=== PATIENT | male | born 1950 | race Caucasian/White ===

== ENCOUNTER 2018-10-24 15:25 | Inpatient (IN) ==
--- OUTSIDE RECORDS SUMMARY | 2018-10-24 15:29 | External Medical Summary | Continuity of Care Document ---
:1950 Author Name Cristal Smith Address Unavailable Unavailable , Care Team Providers Name Role Phone Fabian Serrato PA-C Unavailable [email or web address] Smith Unavailable [email or web address] EVELYN LOZANO M.D., A Unavailable Unavailable Unavailable Unavailable Unavailable Assessments Assessed Problems:Diabetes mellitus Problems Inguinal hernia (550.90) (K40.90) Tinea corporis (110.5) (B35.4) Diabetes mellitus (250.00) (E11.9) Abnormal x-ray of cervical spine (793.7) (R93.7) Neck pain (723.1) (M54.2) Thyroid nodule (241.0) (E04.1) Shoulder pain (719.41) (M25.519) Tick bite (919.4) (W57.XXXA) Screening PSA (prostate specific antigen) (V76.44) (Z12.5) Acid reflux (530.81) (K21.9) Allergies and Adverse Reactions No Known Drug Allergies (Allergy) Medications Ketoconazole 2 % External Cream; APPLY A THIN LAYER TO AFFECTED AREA(S) TWICE DAILY. CLINTON Serrato Start: 15-Feb-2016 Quantity: 1 30 GM Tube Refills: 1 Aspirin 325 MG Oral Tablet; TAKE 1 TABLET DAILY. Start: 29-Dec-2015 Refills: 0 Zantac 150 MG TABS; TAKE 1 TABLET DAILY. Start: 29-Dec-2015 Refills: 0 Meloxicam 7.5 MG Oral Tablet; TAKE 1 TABLET TWICE DAILY. CLINTON Hernadez Start: 17-Jan-2016 Quantity: 60 Refills: 0 Procedures History of Inguinal Hernia Repair Status : Completed 11-May-2006 0:00 History of Tonsillectomy Status: Complet ed Immunizations Immunizations not documented Family History Mother Family history of malignant neoplasm (V16.9) (Z80.9) Status: Active Family history of diabetes mellitus (V18.0) (Z83.3) Status: Active Father Family history of malignant neoplasm (V16.9) (Z80.9) Status: Active Family history of diabetes mellitus (V18.0) (Z83.3) Status: Active Sibling Family history of diabetes mellitus (V18.0) (Z83.3) Status: Active Family history of kidney stones (V18.69) (Z84.1) Status: Act arslan Unknown Family Member Family history of myocardial infarction Status: Active Comments: Family History (V17.3) (Z82.49) Social History - Smoking Status Former smoker Interventions Labs/Procedures/ImagingDiabetic Eye Exam; Done: 15 May 2018 Plan of Treatment Planned Observations Planned Goals not documented Results No Known Results Results not documented
[2018-10-24] MEDS ORDERED: SODIUM CHLORIDE 0.9% 500 ML IV ONE (16:00)
[2018-10-24] MEDS ORDERED: LABETALOL HCL IV 5 MG/ML 20ML IV STA ×2 (16:00→16:54)
--- NOTE | 2018-10-24 16:09 | XRay Report ---
XR chest 1V portable CLINICAL HISTORY: 68 years-old Male presenting with hypertension. TECHNIQUE: Portable upright AP view of the chest was obtained. COMPARISON: . FINDINGS: Atherosclerosis of the aortic arch. Cardiac silhouette normal in size. Lungs and pleural spaces clear . Degenerative changes of the thoracic spine. Upper abdomen normal. IMPRESSION: 1. No acute cardiopulmonary disease. Electronically signed by: Heriberto Simmons M.D. 10/24/2018 4:08 PM
[2018-10-24 16:14] LABS: Basophils # (auto) 0.03 K/uL (0-0.2); Basophils % (auto) 0.5 %; Eosinophils # (auto) 0.09 K/uL (0-0.5); Eosinophils % (auto) 1.5 %; Hematocrit (blood only) 46.9 % (42-52); Hemoglobin 16.7 g/dL (14.0-18.0); Immature Granulocytes # (auto) 0.01 K/uL (0.00-0.02); Immature Granulocytes % (auto) 0.2 %; Lymphocytes # (auto) 1.33 K/uL (1.2-3.4); Lymphocytes % (auto) 21.8 %; Mean Corpuscular Hgb Conc 35.6 g/dL (32-36); Mean Corpuscular Volume 90.7 fL (80-100); Mean Platelet Volume 10.4 fL (7.4-10.4); Monocytes # (auto) 0.37 K/uL (0.11-0.59); Monocytes % (auto) 6.1 %; Neutrophils # (auto) 4.26 K/uL (1.4-6.5); Neutrophils % (auto) 69.9 %; Platelet Count 232 K/uL (130-400); RDW Coefficient of Variation 12.9 % (11.5-14.5); RDW Standard Deviation 42.5 fL (36.4-46.3); Red Blood Count 5.17 M/uL (4.7-6.1); White Blood Count 6.09 K/uL (4.8-10.8)
--- NOTE | 2018-10-24 16:53 | XRay Report ---
ORBIT RADIOGRAPHS 3 VIEWS HISTORY: pre-MRI screening. COMPARISON: None. FINDINGS: There are no radiopaque foreign bodies identified within the orbits. IMPRESSION: No radiopaque foreign bodies identified within the orbits. Electronically signed by: Davian Holder M.D. 10/24/2018 4:51 PM
[2018-10-24 17:11] LABS: Lyme Ab IgM w/WB Rflx Negative (Negative)
[2018-10-24 17:12] LABS: Lyme Ab IgG w/WB Rflx Negative (Negative)
[2018-10-24 17:16] LABS: Alanine Aminotransferase 26 U/L (12-78); Albumin Level 4.3 gm/dl (3.4-5.0); Aspartate Aminotransferase 13 U/L (15-37); BUN Creatinine Ratio 12.4 (10-20); Blood Urea Nitrogen 12 mg/dl (7-18); Calcium 10.3 mg/dl (8.5-10.1); Carbon Dioxide 28 mmol/L (21-32); Chloride 107 mmol/L (98-107); Est GFR (African American) 96.2; Glucose 133 mg/dl (70-99); Potassium 3.7 mmol/L (3.5-5.1); Sodium 143 mmol/L (136-145)
[2018-10-24 17:27] LABS: Albumin Globulin Ratio 1.3 (0.9-2); Alkaline Phosphatase 82 U/L (45-117); Bilirubin,Total 0.7 mg/dl (0.2-1); Globulin 3.3 gm/dl (2.5-4.0); Total Protein 7.6 gm/dl (6.4-8.2); Troponin I < 0.015 ng/ml (0-0.045)
--- NOTE | 2018-10-24 17:46 | Magnetic Resonance Report ---
MRA OF THE INTRACRANIAL CIRCULATION WITHOUT CONTRAST CLINICAL HISTORY: Diplopia. COMPARISON STUDY: None. TECHNIQUE: Utilizing a 1.5 Lexis magnet and 3-D [id number] technique, unenhanced MRA of the intra cranial circulation was obtained. FINDINGS: Please note that the MRI of the brain will be reported separately. The bilateral M1, M2, A1 and A2 segments are patent. 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 The right A1 segment is diminutive and likely hypoplastic. No intracranial aneurysm is identified. No ab rupt vessel cut off inside identified. There is moderate to severe stenosis of the P2 segment of the left posterior cerebral artery. IMPRESSION: 1. No intracranial aneurysm or abrupt vessel cut off. 2. Multifocal stenoses, likely due to atherosclerosis with moderate to severe stenosis of the right c avernous carotid and the P2 segment of the left posterior cerebral artery. Electronically signed by: Davian Holder M.D. 10/24/2018 5:44 PM
--- NOTE | 2018-10-24 17:53 | Magnetic Resonance Report ---
MR brain wo con CLINICAL HISTORY: 68 years-old Male presenting with diplopia that began at 70 and today, concern for stroke. TECHNIQUE: Multisequence, multiplanar MR imaging of the brain was performed without the use of intrav enous contrast. IV contrast: None. COMPARISON: None. FINDINGS: Localizer images: Unremarkable. Normal midline sagittal structures. Proportional ventricular and sulcal prominence, likely age-relate d parenchymal volume loss. No restricted diffusion or hemorrhage. Punctate focus of diffusion hyperin tensity within the left cerebral peduncle is felt to be artifactual given the absence of associated T 2/FLAIR hyperintensity in this region. Minimal periventricular and subcortical white matter T2/FLAIR hyperintensity, nonspecific but likely indicative of chronic small vessel ischemic change. No mass ef fect or midline shift. Mild prominence of CSF spaces along the optic nerves without other evidence to suggest intracranial hypertension. No extra-axial fluid collection. T2 skull base flow voids preserved. Bone marrow signal intensity within the calvarium within normal limits. Complete opacification of the right maxillary sinus. IMPRESSION: 1. No acute intracranial abnormality. Electronically signed by: Heriberto Simmons M.D. 10/24/2018 5:51 PM
[2018-10-24] MEDS ORDERED: ALUMINUM/MAGNESIUM SUSP 30 ML UDC PO PRN (22:17)
[2018-10-24] MEDS ORDERED: ACETAMINOPHEN 325 MG TAB PO PRN (22:17)
[2018-10-24] MEDS ORDERED: MAGNESIUM HYDROXIDE SUSP 30 ML UDC PO PRN (22:17)
[2018-10-24] MEDS ORDERED: ONDANSETRON INJ 2 MG/ML 2 ML VIAL IV PRN (22:17)
[2018-10-24] MEDS ORDERED: PHARMACIST DISCHARGE MED REC CONSULT PRN (22:17)
[2018-10-24] MEDS ORDERED: POLYETHYLENE (MIRALAX) 17 GM PACK PO PRN (22:17)
--- NOTE | 2018-10-24 22:45 | History & Physical Report ---
Date of Service October 24, 2018 Assessment & Plan (1) Diplopia: The patient reports acute onset of diplopia at 7 AM this morning. This was significantly improving later on this evening at the time of admission. MRI brain was negative for acute event. MRA head showed moderate to severe right cavernous carotid stenosis, and P2 segment left posterior cerebral artery stenosis. MRA neck was not ordered, and will be ordered with admission orders. Start aspirin chewable 81 mg daily. Allow permissive hypertension overnight. Stroke without TPA order set Consult neurology. Present on Admission?: Yes (2) GERD (gastroesophageal reflux disease): On ranitidine 150 mg p.o. at bedtime. Present on Admission?: Yes (3) Arthralgia: Patient has had chronic arthralgias for years, and takes naproxen 220 mg p.o. at bedtime. Will hold naproxen in lieu of aspirin being used for antiplatelet effect. Present on Admission?: Yes History of Present Illness Chief Complaint: The patient presented to the emergency department with complaint of blurry vision, along with associated ambulatory dysfunction that began about 7 AM in the morning. Primary Care Provider: Stiven Morgan MD The patient is a 68-year-old male with a past medical history including GERD and hypokalemia, who reports acute onset of blurry vision and associated ambulatory dysfunction that began at 7:00 in the morning. He describes a blurry vision further upon questioning as double vision, there is horizontal with the left image slightly higher than the right. At the time of my examination, the patient reports his symptoms have significantly improved and double vision only occurs when he holds his head in a certain direction, ie tilted back. Allergies Allergy/AdvReac Type Severity Reaction Status Date / Time strawberry AdvReac Vomiting Verified 10/24/18 22:50 Home Medications Home Medications Medication Instructions Recorded Confirmed Type naproxen sodium 220 mg PO HS 10/24/18 10/24/18 History potassium 99 mg PO DAILY PRN 10/24/18 10/24/18 History ranitidine HCl 150 mg PO HS 10/24/18 10/24/18 History Past Med/Surg History Medical History No significant medical problems Social History Preferred Language: Danish [employer] Required: No Beliefs That Will Affect Care: None Current Living Situation: Spouse Other Information That Helps Us Care for You: No Feels Safe at Home: Yes Safety Concerns: Feels Safe At This Time Smoking Status: Former smoker Hx Alcohol Use: Yes Alcohol type: beer Hx Substance Use: No Review of Systems Review of Systems: The patient denies chest pain, palpitations, shortness of breath, dyspnea on exertion, cough, lower extremity swelling, sore throat, fevers, chills, sweats, weight change, nausea, vomiting, diarrhea , constipation, abdominal pain, pelvic pain, blood in urine or stool, dysuria, urinary frequency or urgency, headache, memory loss, loss of consciousness, rash, abnormal bruising or bleeding, focal or generalized weakness, numbness or tingling in arms or legs, back or neck pain, or night sweats. The review of systems is otherwise negative other than for that already noted above, and at least 10 systems have been reviewed. Physical Exam Physical Exam: The patient is awake, alert and oriented 3, well developed and well nourished, normocephalic and atraumatic, lying in bed and in no acute distress. HEENT--PERRL, EOMI, mucous membranes and oropharynx dry. Neck--supple. No JVD. No bruits. Thyroid normal, trachea midline, no adenopathy. Heart--normal S1 and S2. No murmurs, rubs or gallops. Lungs--clear bilaterally, no respiratory distress, no accessory muscle use. Abdomen--normal bowel sounds and soft. Nontender. Nondistended, no hernias or masses, no organomegaly. Extremities--no cyanosis or clubbing. No edema. There are good distal pulses b/l. Dermatologic--normal skin turgor, normal color, no abnormal lymph nodes, no rash. Neurologic--cranial nerves II through XII grossly intact. Rheumatologic--normal range of motion. Psychiatric--normal affect. Results & Data Vital Signs (Past 12 Hours) Vital Signs Temp Pulse Pulse Pulse Resp BP BP 10/24/18 22:40 86 189/109 H 10/24/18 22:10 97.9 F 82 18 191/107 H 10/24/18 21:58 82 19 161/101 H 10/24/18 21:56 82 19 161/101 H 10/24/18 20:56 83 17 173/99 H 10/24/18 19:05 84 13 175/100 H 10/24/18 18:30 87 17 158/96 H 10/24/18 18:00 18 162/100 H 10/24/18 17:59 96 H 18 162/100 H 10/24/18 17:58 17 165/97 H 10/24/18 17:00 99 H 18 172/99 H 10/24/18 16:45 91 H 12 189/108 H 10/24/18 16:30 96 H 20 171/104 H 10/24/18 16:17 107 H 6 L 195/112 H 10/24/18 15:51 109 H 16 10/24/18 15:44 117 H 17 213/125 H 10/24/18 15:31 99.0 F 115 H 20 199/117 H Pulse Ox 10/24/18 22:40 10/24/18 22:10 92 10/24/18 21:58 96 10/24/18 21:56 96 10/24/18 20:56 95 10/24/18 19:05 95 10/24/18 18:30 94 10/24/18 18:00 94 10/24/18 17:59 96 10/24/18 17:58 94 10/24/18 17:00 94 10/24/18 16:45 96 10/24/18 16:30 94 10/24/18 16:17 93 10/24/18 15:51 95 10/24/18 15:44 95 10/24/18 15:31 96 Laboratory Results Laboratory Results WBC 6.09 K/uL (4.8-10.8) 10/24/18 15:53 RBC 5.17 M/uL (4.7-6.1) 10/24/18 15:53 Hgb 16.7 g/dL (14.0-18.0) 10/24/18 15:53 Hct 46.9 % (42-52) 10/24/18 15:53 MCV 90.7 fL (80-100) 10/24/18 15:53 MCH 32.3 pg (25-34) 10/24/18 15:53 MCHC 35.6 g/dL (32-36) 10/24/18 15:53 RDW Std Deviation 42.5 fL (36.4-46.3) 10/24/18 15:53 RDW Coeff of Lo 12.9 % (11.5-14.5) 10/24/18 15:53 Plt Count 232 K/uL (130-400) 10/24/18 15:53 MPV 10.4 fL (7.4-10.4) 10/24/18 15:53 Immature Gran % (Auto) 0.2 % 10/24/18 15:53 Neut % (Auto) 69.9 % 10/24/18 15:53 Lymph % (Auto) 21.8 % 10/24/18 15:53 [place] % (Auto) 6.1 % 10/24/18 15:53 Eos % (Auto) 1.5 % 10/24/18 15:53 Baso % (Auto) 0.5 % 10/24/18 15:53 Immature Gran # (Auto) 0.01 K/uL (0.00-0.02) 10/24/18 15:53 Neut # (Auto) 4.26 K/uL (1.4-6.5) 10/24/18 15:53 Lymph # (Auto) 1.33 K/uL (1.2-3.4) 10/24/18 15:53 [place] # (Auto) 0.37 K/uL (0.11-0.59) 10/24/18 15:53 Eos # (Auto) 0.09 K/uL (0-0.5) 10/24/18 15:53 Baso # (Auto) 0.03 K/uL (0-0.2) 10/24/18 15:53 Sodium 143 mmol/L (136-145) 10/24/18 15:53 Potassium 3.7 mmol/L (3.5-5.1) 10/24/18 15:53 Chloride 107 mmol/L (98-107) 10/24/18 15:53 Carbon Dioxide 28 mmol/L (21-32) 10/24/18 15:53 Anion Gap 8.0 (3-11) 10/24/18 15:53 BUN 12 mg/dl (7-18) 10/24/18 15:53 Creatinine 0.94 mg/dl (0.6-1.4) 10/24/18 15:53 Est Cr Clr Drug Dosing Not Reportable 10/24/18 15:53 Est GFR ( Amer) 96.2 10/24/18 15:53 Est GFR (Non-Af Amer) 83.0 10/24/18 15:53 BUN/Creatinine Ratio 12.4 (10-20) 10/24/18 15:53 Glucose 133 mg/dl (70-99) H 10/24/18 15:53 POC Glucose 132 (70-99) H 10/24/18 15:40 Calcium 10.3 mg/dl (8.5-10.1) H 10/24/18 15:53 Magnesium 2.0 mg/dl (1.8-2.4) 10/24/18 15:53 Total Bilirubin 0.7 mg/dl (0.2-1) 10/24/18 15:53 AST 13 U/L (15-37) L 10/24/18 15:53 ALT 26 U/L (12-78) 10/24/18 15:53 Alkaline Phosphatase 82 U/L (45-117) 10/24/18 15:53 Troponin I < 0.015 ng/ml (0-0.045) 10/24/18 15:53 Total Protein 7.6 gm/dl (6.4-8.2) 10/24/18 15:53 Albumin 4.3 gm/dl (3.4-5.0) 10/24/18 15:53 Globulin 3.3 gm/dl (2.5-4.0) 10/24/18 15:53 Albumin/Globulin Ratio 1.3 (0.9-2) 10/24/18 15:53 TSH 2.250 uIu/ml (0.300-4.500) 10/24/18 15:53 Lyme Disease IgG Ab Negative (Negative) 10/24/18 15:53 Lyme Disease IgM Ab Negative (Negative) 10/24/18 15:53 Diagnostic Findings [facility], [place] [phone] XRay Report Patient: MITCH ELLISAdmit Date: 10/24/18 MR#: [id number]: [address] [facility] Acct ID:[id number]: [facility] [place] [address] Age: 68Location: ED Sex: M Room/Bed: Att Phy: Diagnosis: STROKE Madelin Phy: Stiven Morgan, III, MDService Date: 10/24/18 Fam Phy: Interpreting Phy: Heriberto Simmons MD Admit Phy: Ordering Phy: Diana Kc DO cc: ~ XR chest 1V portable CLINICAL HISTORY: 68 years-old Male presenting with hypertension. TECHNIQUE: Portable upright AP view of the chest was obtained. COMPARISON: . FINDINGS: Atherosclerosis of the aortic arch. Cardiac silhouette normal in size. Lungs and pleural spaces clear. Degenerative changes of the thoracic spine. Upper abdomen normal. IMPRESSION: 1. No acute cardiopulmonary disease. Electronically signed by: Heriberto Simmons M.D. 10/24/2018 4:08 PM Dictated: 10/24/18 160 Transcribed: 10/24/18 160 [facility], [place] [phone] XRay Report Patient: MITCH ELLISAdmit Date: 10/24/18 MR#: [id number]: [address] [facility] Acct ID:[id number]: [facility] 1950[facility] [place] [address] Age: 68Location: ED Sex: M Room/Bed: Att Phy: Diagnosis: STROKE Madelin Phy: Stiven Morgan, III, MDService Date: 10/24/18 Marvin Phy: Interpreting Phy: Davian Holder MD Admit Phy: Ordering Phy: Diana Kc DO cc: ~ ORBIT RADIOGRAPHS 3 VIEWS HISTORY: pre-MRI screening. COMPARISON: None. FINDINGS: There are no radiopaque foreign bodies identified within the orbits. IMPRESSION: No radiopaque foreign bodies identified within the orbits. Electronically signed by: Davian Holder M.D. 10/24/2018 4:51 PM Dictated: 10/24/18 165 Transcribed: 10/24/18 165 [facility], [place] [phone] Magnetic Resonance Report Patient: MITCH ELLISAdmit Date: 10/24/18 MR#: [id number]: [address] [facility] Acct ID:[id number]: Date: 1950[facility] Zip: [place] [address] Age: 68Location: ED Sex: M Room/Bed: Att Phy: Diagnosis: STROKE Madelin Phy: Stiven Morgan III, MDService Date: 10/24/18 [facility] Phy: Interpreting Phy: Heriberto Simmons MD Admit Phy: Ordering Phy: Diana Kc DO cc: ~ MR brain wo con CLINICAL HISTORY: 68 years-old Male presenting with diplopia that began at 70 and today, concern for stroke. TECHNIQUE: Multisequence, multiplanar MR imaging of the brain was performed without the use of intravenous contrast. IV contrast: None. COMPARISON: None. FINDINGS: Localizer images: Unremarkable. Normal midline sagittal structures. Proportional ventricular and sulcal prominence, likely age-related parenchymal volume loss. No restricted diffusion or hemorrhage. Punctate focus of diffusion hyperintensity within the left cerebral peduncle is felt to be artifactual given the absence of associated T2/FLAIR hyperintensity in this region. Minimal periventricular and subcortical white matter T2/FLAIR hyperintensity, nonspecific but likely indicative of chronic small vessel ischemic change. No mass effect or midline shift. Mild prominence of CSF spaces along the optic nerves without other evidence to suggest intracranial hypertension. No extra-axial fluid collection. T2 skull base flow voids preserved. Bone marrow signal intensity within the calvarium within normal limits. Complete opacification of the right maxillary sinus. IMPRESSION: 1. No acute intracranial abnormality. Electronically signed by: Heriberto Simmons M.D. 10/24/2018 5:51 PM Dictated: 10/24/181743 Transcribed: 10/24/181743 [facility] [place] [phone] Magnetic Resonance Report Patient: MITCH ELLISAdmit Date: 10/24/18 MR#: [id number]: [address] [facility] Acct ID:[id number]: Date: 1950[facility] Zip: [place] [address] Age: 68Location: ED Sex: M Room/Bed: Att Phy: Diagnosis: STROKE Madelin Phy: Stiven Morgan III, MDService Date: 10/24/18 [facility] Phy: Interpreting Phy: Davian Holder MD Admit Phy: Ordering Phy: Diana Kc, cc: ~ MRA OF THE INTRACRANIAL CIRCULATION WITHOUT CONTRAST CLINICAL HISTORY: Diplopia. COMPARISON STUDY: None. TECHNIQUE: Utilizing a 1.5 Lexis magnet and 3-D bwtl-[id number]-usoldn technique, unenhanced MRA of the intracranial circulation was obtained. FINDINGS: Please note that the MRI of the brain will be reported separately. The bilateral M1, M2, A1 and A2 segments are patent. 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 The right A1 segment is diminutive and likely hypoplastic. No intracranial aneurysm is identified. No abrupt vessel cut off inside identified. There is moderate to severe stenosis of the P2 segment of the left posterior cerebral artery. IMPRESSION: 1. No intracranial aneurysm or abrupt vessel cut off. 2. 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 Electronically signed by: Davian Holder M.D. 10/24/2018 5:44 PM Dictated: 10/24/18 1741 Transcribed: 10/24/18 1741 Code Status & VTE Plan Code Status Full code VTE Prophylaxis Plan VTE Prophylaxis will be ordered: Yes PG Care Time/CCT Total # of Minutes Spent Total Time Spent with Patient: Total time spent is greater than 50% in coordination of care (as documented) at patient's floor/unit and/or counseling patient:
[2018-10-25] MEDS: HEPARIN SOD 5,000 UNIT/0.5 ML VIAL SQ SCH ×2 (00:07→08:19)
[2018-10-25 06:49] LABS: Basophils # (auto) 0.03 K/uL (0-0.2); Basophils % (auto) 0.6 %; Eosinophils % (auto) 5.6 %; Hematocrit (blood only) 42.9 % (42-52); Hemoglobin 15.1 g/dL (14.0-18.0); Immature Granulocytes # (auto) 0.01 K/uL (0.00-0.02); Immature Granulocytes % (auto) 0.2 %; Lymphocytes # (auto) 1.89 K/uL (1.2-3.4); Lymphocytes % (auto) 35.3 %; Mean Corpuscular Hgb Conc 35.2 g/dL (32-36); Mean Corpuscular Volume 91.9 fL (80-100); Mean Platelet Volume 10.2 fL (7.4-10.4); Monocytes # (auto) 0.47 K/uL (0.11-0.59); Monocytes % (auto) 8.8 %; Neutrophils # (auto) 2.65 K/uL (1.4-6.5); Neutrophils % (auto) 49.5 %; Platelet Count 218 K/uL (130-400); RDW Coefficient of Variation 13.2 % (11.5-14.5); RDW Standard Deviation 44.3 fL (36.4-46.3); Red Blood Count 4.67 M/uL (4.7-6.1); White Blood Count 5.35 K/uL (4.8-10.8)
[2018-10-25 06:59] LABS: Prothrombin Time 10.6 Seconds (9.0-12.0)
[2018-10-25 07:17] LABS: Calcium 8.7 mg/dl (8.5-10.1); Creatinine Clr Calc Pharmacy 72.1 ml/min; Est GFR (African American) 96.2; Potassium 3.6 mmol/L (3.5-5.1)
[2018-10-25] MEDS ORDERED: PNEUMOCOCCAL ADMINISTRATION CHARGE ONE (07:30)
[2018-10-25] MEDS ORDERED: PNEUMOCOCCAL POLYSACCHARIDES 25 MCG/0.5 ML VIAL/SYR IM ONE (07:30)
[2018-10-25 07:31] LABS: Estimated Average Glucose 137 mg/dl; Hemoglobin A1C 6.4 % (4.5-5.6)
--- NOTE | 2018-10-25 08:57 | Neurology Consultation ---
Date of Consultation October 25, 2018 Assessment & Plan (1) Stroke: This patient has an acute left midbrain stroke, just anterior to the 3rd nerve nucleus resulting in an incomplete, pupil sparing, left 3rd nerve palsy related to ischemic damage of the fascicles of the 3rd nerve within the midb rain. This small ischemic stroke spares the left cerebral peduncle and he fortunately does not have an associated right hemiparesis. Clinically, his presentation is identical to a medical 3rd nerve palsy on the left. There is no evidence of cerebral aneurysm. Stroke risk factors for this patient include hypertension, which has probably been unrecognized until now and is likely relatively long-standing, and borderline diabetes mellitus. He is a former smoker, although quit about 20 years ago. I agree with aspirin 81 mg/day. He will need to have his hypertension better controlled going forward. Systolic blood pressure goal closer to 140 mmHg during this hospitalization with further reductions to be accomplished in the outpatient setting. Would also be reasonable to consider starting a statin for this patient as he does have evidence of cerebrovascular disease on MR angiography of the head. He should also have a carotid ultrasound completed which could also be followed up with a CT angiogram of the head and neck if necessary. Please contact me if I may be of further assistance. History of Present Illness Reason for Consultation: Diplopia Requesting Physician: Khanh Eisenberg Attending Physician: Hermilo Juarez DO History of Present Illness The patient is a 68-year-old male with a chief complaint of diplopia that he noticed upon awakening yesterday morning. He complains of horizontal diplopia with the left image slightly elevated compared to the right. The diplopia seems worse with looking at objects up close and resolves with closing either eye. He also complains of some associated droopiness of the left upper eyelid. No vision loss or ocular pain. The diplopia has been rather persistent although the associated ptosis has modestly improved. He denies experiencing any associated dysarthria, vertigo, or weakness or sensory loss on either side of the body. The patient admits that he does not follow with his primary care physician regularly. His blood pressure has been significantly elevated during this hospitalization. He does not complain of headache or dizziness. He denies experiencing similar symptoms in the past and denies a history of stroke or TIA. Additional details as below. 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 Beliefs That Will Affect Care: None Current Living Situation: Spouse Other Information That Helps Us Care for You: No Feels Safe at Home: Yes Safety Concerns: Feels Safe At This Time Smoking Status: Former smoker Hx Alcohol Use: Yes Alcohol type: beer Hx Substance Use: No Review of Systems Constitutional: no fever and no chills Eyes: as per Subjective / HPI Ear, Nose, Mouth, Throat: no hearing loss Respiratory: no cough and no dyspnea Cardiovascular: no chest pain and no palpitations Gastrointestinal: no nausea and no vomiting Genitourinary: no dysuria Musculoskeletal: no myalgia Integumentary: no rash and no lesions Neurologic: as per Subjective / HPI; no localized weakness, no numbness, no lack of coordination, no headache(s) and no abnormal speech Psychiatric: no depression and no anxiety Hematologic / Lymphatic: no easy bleeding and no easy bruising Physical Exam Physical Exam: The patient is a well-developed, well-nourished elderly male. He is alert and fully oriented. Recent and remote memory intact. Attention and concentration normal. Patient exhibits a normal spontaneous speech pattern. He is able to name objects and repeat phrases. Patient exhibits an age-appropriate fund of knowledge and normal comprehension of vocabulary. Visual burk full to confrontation. Visual acuity normal. There is slight anisocoria with the left pupil slightly smaller than the left. Both pupils are otherwise round and react well to light and accommodation. There is mild left upper lid ptosis. There is impaired ocular motility for the left eye with notable impairment of medial gaze of the left eye. There is no nystagmus. Facial sensation intact. There is no facial droop or weakness. Hearing intact. Palate elevates to midline. Shoulder shrug intact. Tongue protrudes to midline. Sensation intact to all modalities in all 4 limbs. Deep tendon reflexes are intact and symmetrical for the arms and legs bilaterally. Plantar responses upgoing bilaterally. There is no dysdiadochokinesia or dysmetria jvheiw-sp-vjqh or qnsr-vy-mihg bilaterally. Ophthalmoscopic examination reveals normal-appearing optic disks and normal posterior segments. There is no papilledema. There may be some changes related to hypertensive retinopathy such as copper wiring. No obvious hemorrhages. Carotid pulses normal bilaterally, no bruits to auscultation. Gait and station normal. Patient exhibits normal muscle strength and tone for all 4 limbs. No atrophy. No abnormal movements observed. Results & Data Vital Signs (Past 12 Hours) Vital Signs Temp Pulse Pulse Pulse Resp BP BP 10/25/18 06:55 36.6 C 72 18 169/89 H 10/25/18 03:33 36.5 C 75 16 169/90 H 10/25/18 00:41 75 10/24/18 23:18 36.5 C 73 16 188/100 H 10/24/18 22:40 86 189/109 H 10/24/18 22:10 36.6 C 82 18 191/107 H 10/24/18 21:58 82 19 161/101 H 10/24/18 21:56 82 19 161/101 H 10/24/18 20:56 83 17 173/99 H Pulse Ox 10/25/18 06:55 96 10/25/18 03:33 96 10/25/18 00:41 10/24/18 23:18 96 10/24/18 22:40 10/24/18 22:10 92 10/24/18 21:58 96 10/24/18 21:56 96 10/24/18 20:56 95 Laboratory Results Recent labs reviewed. WBC 5.35, hemoglobin 15.1, platelet count 218, sodium 143 , potassium 3.6, BUN 12, creatinine 0.94, glucose 129, hemoglobin A1c 6.4, calcium 8.7, lipid panel within normal limits, TSH 2.250, Lyme antibody screening negative. Diagnostic Findings MRI of the brain reveals a punctate focus of increased diffusion within the left cerebral peduncle just anterior to the 3rd nerve nucleus. There is a slight amount of corresponding decreased signal in this region on the associated ADC map. There is no associated increased signal on the corresponding T2/flair sequences. Per my review of the images, I believe this finding is consistent with an acute infarct in the left midbrain when taken in the context of this patient's examination and clinical history. The MRI also reveals chronic small vessel ischemic disease. Images and report reviewed. MRA of the head reveals multifocal stenoses with evidence of a moderate to severe stenosis of the right cavernous carotid and a moderate to severe stenosis of the P2 segment of the left posterior cerebral artery. Electrocardiogram reveals a normal sinus rhythm, 81 bpm.
[2018-10-25] MEDS ORDERED: ASPIRIN 81 MG CHEW PO SCH (09:00)
[2018-10-25] MEDS ORDERED: LISINOPRIL 20 MG TAB PO STA (11:42)
[2018-10-25] MEDS ORDERED: ATORVASTATIN 40 MG TAB PO SCH (11:45)
--- NOTE | 2018-10-25 13:09 | Magnetic Resonance Report ---
MR angio neck wo con CLINICAL HISTORY: 68 years-old Male presenting with acute onset double vision. TECHNIQUE: MR angiography of the neck was performed without the use of intravenous contrast using 2-D bcqs-al-qrdxqh technique. 3-D volumetric and/or maximum intensity projection (MIP) images were subse quently reconstructed for review. IV contrast: None. Stenosis measurements were based on NASCET-like criteria (distal lumen diameter as the denominator for stenosis measurement). COMPARISON: None. FINDINGS: Localizer images: Unremarkable. Aortic arch: Atherosclerosis of the three-vessel aortic arch. Innominate artery: Patent. Right common carotid artery: Patent. Right internal and external carotid arteries: Right carotid bifurcation patent. Right internal and ex ternal carotid arteries widely patent. Left common carotid artery: Patent. Left internal and external carotid arteries: Left carotid bifurcation patent. Left internal and exter nal carotid arteries widely patent. Left subclavian artery: Patent. Vertebral arteries: Codominant vertebral arteries. Origins and courses of the bilateral vertebral art eries patent. Other: Soft tissues of the neck grossly normal. IMPRESSION: 1. No dissection, significant stenosis, or focal vessel occlusion. Electronically signed by: Heriberto Simmons M.D. 10/25/2018 1:08 PM
--- NOTE | 2018-10-25 13:30 | Ultrasound Report ---
US carotid doppler BI CLINICAL HISTORY: 68 years-old Male presenting with midbrain stroke, also has carotid stenosis. TECHNIQUE: Real-time grayscale and color and spectral Doppler ultrasound imaging of the bilateral car otid arteries was performed. Stenosis measurements were based on NASCET-like criteria (distal lumen d iameter as the denominator for stenosis measurement). COMPARISON: MR brain performed the previous day and MRA neck from earlier today. FINDINGS: RIGHT: Common carotid artery (CCA): Atherosclerosis. Peak systolic velocity (PSV) 69 cm/s. Internal carotid artery (ICA): Patent. PSV 64 cm/s. End diastolic velocity (EDV) 25 cm/s. ICA/CCA (systolic) ratio: 0.9. External carotid artery (ECA): Patent. PSV 104 cm/s. LEFT: CCA: Atherosclerosis. PSV 68 cm/s. ICA: Patent. PSV 86 cm/s. EDV 34 cm/s. ICA/CCA (systolic) ratio: 1.3. ECA: Patent. PSV 90 cm/s. Bilateral antegrade flow within the vertebral arteries. Blood pressure: Not performed. Brachial: Right: mmHg, Left: mmHg. Reference ranges: Stenosis measurements are compared to reference velocity parameters by the Society of Radiologists in Ultrasound (SRU) consensus and Sonographic NASCET index (S-NASCET). * SRU Primary parameters: ICA PSV <125 cm/s = normal or less than 50% stenosis; ICA PSV 125-230 cm/s = 50-69% stenosis; ICA PSV >230 cm/s = greater than or equal to 70% stenosis. * SRU Additional parameters: ICA/CCA PSV ratio <2 = normal or less than 50% stenosis; ratio 2-4 = 5 0-69% stenosis; ratio >4 = greater than or equal to 70% stenosis. ICA EDV <40 cm/s = normal or less t coffman 50% stenosis; ICA EDV 40-100 cm/s = 50-69% stenosis; ICA EDV >100 cm/s = greater than or equal to 70% stenosis. * S-NASCET parameters: Deceleration spectral broadening + PSV <125 cm/s = less than 50% stenosis; pa nsystolic spectral broadening + PSV <125 cm/s = 16-49% stenosis; pansystolic spectral broadening + PS V >125 cm/s + EDV <110 cm/s or ICA/CCA PSV ratio 2-4 = 50-69% stenosis; pansystolic spectral broadeni ng + PSV >270 cm/s OR EDV >110 cm/s OR ICA/CCA PSV ratio >4 = 70-79% stenosis; EDV >140 cm/s = 80-99% stenosis. IMPRESSION: 1. No hemodynamically significant stenosis seen within the carotid arteries. Electronically signed by: Heriberto Simmons M.D. 10/25/2018 1:29 PM
[2018-10-25] MEDS ORDERED: STROKE PATIENT DISCHARGE STA (14:36)
--- NOTE | 2018-10-25 14:49 | Discharge Summary ---
Date of Service October 25, 2018 Admission HPI Per Admitting Provider The patient is a 68-year-old male with a past medical history including GERD and hypokalemia, who reports acute onset of blurry vision and associated ambulatory dysfunction that began at 7:00 in the morning. He describes a blurry vision further upon questioning as double vision, there is horizontal with the left image slightly higher than the right. At the time of my examination, the patient reports his symptoms have significantly improved and double vision only occurs when he holds his head in a certain direction, ie tilted back. Admission Exam Per Admitting Provider Physical Exam: The patient is awake, alert and oriented 3, well developed and well nourished, normocephalic and atraumatic, lying in bed and in no acute distress. HEENT--PERRL, EOMI, mucous membranes and oropharynx dry. Neck--supple. No JVD. No bruits. Thyroid normal, trachea midline, no adenopathy. Heart--normal S1 and S2. No murmurs, rubs or gallops. Lungs--clear bilaterally, no respiratory distress, no accessory muscle use. Abdomen--normal bowel sounds and soft. Nontender. Nondistended, no hernias or masses, no organomegaly. Extremities--no cyanosis or clubbing. No edema. There are good distal pulses b/l. Dermatologic--normal skin turgor, normal color, no abnormal lymph nodes, no rash. Neurologic--cranial nerves II through XII grossly intact. Rheumatologic--normal range of motion. Psychiatric--normal affect. Principal Diagnosis Acute ischemic stroke in the midbrain Discharge Exam Constitutional WD/WN, vitals as above Eyes normal visual burk by confrontation, + eyelid abnormality (slight ptosis on the left), normal accommodation, reactive pupils, + anisocoria (left slightly smaller than right) and + EOM movement deficit (impaired medial movement of left eye); no conjunctival abnormality, no scleral abnormality, no nystagmus and no photophobia ENMT external ear and nose normal, oropharynx normal Neck trachea midline, no thyromegaly Respiratory normal respiratory effort, lungs clear to auscultation Cardiovascular RRR, no murmur, no edema Gastrointestinal (Abdomen) normal bowel sounds, soft, nontender, no hepatosplenomegaly Musculoskeletal no cyanosis or clubbing, extremities motor strength 5/5 Skin no rashes, warm and dry Neurologic patellar DTR's 2+ bilat, sensation intact and PERRL, EOMI, accommodation nl, no face palsy, no dysarthria Psychiatric A+Ox3, euthymic affect Lymphatic no cervical or axillary lymphadenopathy Discharge Data Allergies Allergy/AdvReac Type Severity Reaction Status Date / Time strawberry AdvReac Vomiting Verified 10/24/18 22:50 Consultations 10/24/18 19:42 ED Decision to Admit Stat 10/24/18 22:17 Consult Case Management - Discharge Planning Routine 10/25/18 06:44 Consult Neurology Routine Ordered Studies 10/24/18 16:00 MR angio head wo con Stat MR brain wo con Stat 10/25/18 02:09 MR angio neck wo con Routine 10/25/18 08:58 US carotid doppler BI Routine Hospital Course (1) Stroke: MRI brain shows a midbrain stroke, very small, affecting nucleus of the third cranial nerve pupil is spared, intact light reflex impaired medial gaze of the left eye causing diplopia echocardiogram is normal, no intracardiac thrombus, no obvious PFO no atrial fibrillation on monitor and findings are not suggestive of embolic stroke as it is single location, unilateral no stenosis on carotid doppler, no aneurysm seen on MRA head and neck secondary stroke prevention includes better blood pressure control, treating LDL, treating borderline diabetes d/c home on aspirin 81mg daily, Lipitor 40mg daily, Lisinopril 20mg daily, see below for further details (2) CN III palsy, left eye: due to acute ischemic stroke should resolve over time (3) Diplopia: again, due to CN III palsy, stroke in midbrain recommend using eye patch for the diplopia follow up with eye doctor instructed to NOT drive until cleared by eye doctor (4) Hypertension: BP markedly elevated at times, some values greater than 200 systolic in the ED likely with long standing hypertension admits that he has not seen Dr. Morgan in a few years, likely with long standing hypertension most recent pressures 160/80's prior to any medications will start on Lisinopril 20mg daily but anticipate him needing 40mg on follow up goal is 140/80 should check a BMP in 2 weeks after starting Lisinopril please note that I stopped his daily potassium supplement since the lisinopril will likely raise it (5) Dyslipidemia: LDL 100 too high given his stroke will start on Lipitor 40mg daily advised to follow a low fat diet (6) Borderline diabetes: patient says he has had borderline diabetes for years he knows the diet he should be following discussed starting Metformin with him, he would like to wait to discuss with Dr. Morgan again, instructed to follow low carb diet recommend weight loss of 10% body weight HbA1c is 6.4%, average sugar 137 (7) GERD (gastroesophageal reflux disease): On ranitidine 150 mg p.o. at bedtime. (8) Arthralgia: Patient has had chronic arthralgias for years, and takes naproxen 220 mg p.o. at bedtime. advised to stop taking Naproxen for time being due to starting aspirin if he would need the Naproxen again could consider exchanging Ranitidine for PPI Total Time Total Time Spent Total Time Spent (In Minutes): 45 minutes Total Time Includes: Examination of the Patient, Discharge Planning, Medication Reconciliation and Communication With Other Providers (Dr. Shi) Discharge Plan Discharge Items Patient Disposition: Home - Self-Care Reason For Visit: BLURRED VISION, DIPLOPIA Discharge Diagnosis: Diplopia (double vision) Acute midbrain stroke by nucleus of left third cranial nerve Condition: Good Discharge Goals: Improve disease control and Improve function Activity: Per 'Additional Instructions' section Lifting: None Bathing: No limitations Sexual Activity: When tolerated Exercise/Sports: None Driving/Machine Use Comment: no driving until follow up, cleared by eye doctor Non-emergency contact: Primary Care Provider and Neurologist Call non-emergency contact if: you have any medication questions, your symptoms worsen and you have a fever Follow-up/Referrals: Stiven Morgan III, MD [Primary Care Provider] - Diet: Carb Consistent or DM2 and Low Fat Addtl Provider Instructions: Medications: - ASPIRIN: 81mg daily, antiplatelet medication to prevent future strokes - LIPITOR: statin, this lowers LDL cholesterol and also stabilizes plaques, clinically proven to prevent strokes - LISINOPRIL: blood pressure medication, start at 20mg daily, may need to increase to 40mg as outpatient common side effect of this medication is a cough - POTASSIUM: the lisinopril can raise potassium levels so for time being I would recommend that you hold this until potassium levels are checked by Dr. Morgan - NAPROXEN: do not recommend taking with the aspirin so hold for now Double vision, caused by small ischemic stroke in the midbrain, caused left cranial nerve palsy MRI brain shows a very small stroke in this region which correlates with your symptoms treatment includes aspirin and Lipitor for the double vision, you can purchase an eye patch to wear over affected eye please follow up with eye doctor in one week do not drive until they say you are okay the echocardiogram was normal carotid doppler as well as MRA of the head and neck shows no severe stenosis in vessels no atrial fibrillation on the monitor need to focus on secondary stroke risk reduction - Hypertension: goal would be BP less than 140/80 starting on Lisinopril 20mg daily, next dose due tomorrow morning given long standing hypertension you will likely need a higher dose follow up with Dr. Morgan for blood pressure check in the office - Dyslipidemia: LDL was in the 100's which is too high for having a stroke Lipitor 40mg daily, this will lower LDL and stabilize plaques please follow a low cholesterol diet - Borderline diabetes: as we discussed, you have had this for years HbA1c is 6.4%, technically you would have DM if it was 6.5% continue to eat a diet low in complex carbohydrates and avoid excessive sweets follow up with Dr. Morgan to discuss possible medications, such as Metformin - Exercise: you should ideally get 30 minutes 4 times a week FOLLOW UP - call Dr. Morgan's office on Saturday, you NEED to be seen by the end of the week for follow up specifically you need blood pressure check - Dr. Shi, neurology clinic, in one month, [phone] Risk Factors for Stroke: You can reduce your chances of stroke by working with your medical provider to adopt a healthy lifestyle. Some specific ways to lower your chance of stroke are: * If you are a smoker, now is the time to stop smoking cigarettes * If you are diabetic, improve the control of your blood sugars * Avoid excessive amounts of alcohol * Control high blood pressure * Lose weight if you are overweight * Be sure to lead an active lifestyle * Eat a healthy diet low in salt, cholesterol and fat You should know about other risk factors for stroke that you are unable to control. These include: * Age 55 years or older * Male gender * Certain racial groups: , or / * Family History of Stroke, Mini stroke or Heart Attack * Sickle Cell Disease Follow Up: It is important for you to keep your follow up appointments with your medical provider. Who to Call and When: Medical Emergencies: Call 911 immediately if you experience any of the following warning signs and symptoms of Stroke: * Sudden numbness or weakness of the face, arm or leg, especially on one side of the body * Sudden confusion, trouble speaking or understanding * Sudden trouble seeing in one or both eyes * Sudden trouble walking, dizziness, loss of balance or coordination * Sudden severe headache with no cause Do not delay calling 911 if you experience any warning signs or symptoms of a stroke. Delay in seeking medical attention may affect what treatments can be given to you. . Prescriptions: New atorvastatin 40 mg Tablet 40 mg PO QAM 30 Days Qty: 30 RF: 3 aspirin 81 mg Tablet,Chewable 81 mg PO QAM 30 Days Qty: 30 RF: 0 lisinopril 20 mg tablet 20 mg PO DAILY Qty: 30 RF: 1 Continued ranitidine HCl 150 mg Tablet 150 mg PO HS RF: 0 Discontinued potassium 99 mg Tablet 99 mg PO DAILY PRN (Reason: muscle cramps) RF: 0 naproxen sodium 220 mg Tablet 220 mg PO HS RF: 0 Stand-Alone Forms: Medications to Prevent Stroke, [facility] Discharge Orders: Discharge Order (Routine); Ordered 10/25/18 Ordered By: Hermilo Juarez Admission Data Admit Date/Time: 10/24/18 20:54 Attending Provider: Hermilo Juarez Admit Provider: Khanh Eisenberg Primary Care Provider: Stiven Morgan III Other Providers: Khanh Eisenberg ; Mikey Shi Service: Telemetry
--- NOTE | 2018-10-25 16:13 | Pharmacy Report ---
Pharmacist Stroke Counseling - Date of Service October 25, 2018 - Scope: Pharmacy has been consulted to provide medication discharge counseling for this patient admitted with ischemic stroke as per the Pharmacist Discharge Counseling for Stroke Patients Protocol. - Medications on Discharge: Home Medications Medication Instructions Recorded Confirmed ranitidine HCl 150 mg PO HS 10/24/18 10/24/18 New Rx's Medication Instructions Recorded aspirin 81 mg PO QAM 30 Days #30 tab 10/25/18 atorvastatin 40 mg PO QAM 30 Days #30 tab 10/25/18 lisinopril 20 mg PO DAILY #30 tab 10/25/18 - Action: The above medications, specifically ones for stroke treatment/prophylaxis, have been reviewed in detail with the patient and/or patient sales representative graphic art(s) prior to discharge. This includes indication, common adverse reactions, drug interactions, and medication administration. Medication counseling has been employed using the teach-back method to ensure understanding. - Outcome: The patient and patient's spouse have demonstrated understanding of the medications. Please note, they are aware that the pharmacist will call them within 72 hours post-discharge to confirm that the appropriate medications are being taken and answer any further medication related questions the patient might have at that time. Contact information Individual to be contacted: Ty Phone number: Best time to call: anytime after 9 AM Additional comments: - Discussed non-prescription pain med options, namely that acetaminophen (Tylenol) would be the preferred option for him. He and his were concerned that this would not be adequate for pain relief. I reiterated that NSAIDs such as naproxen would not be preferred in a patient post-stroke (also taking aspirin), so to try Tylenol first and advance to naproxen OTC only if absolutely needed. If he finds that he needs to take naproxen frequently, then he should discuss other treatment options with his primary care physician. - No other concerns from the patient noted during the discussion - Pill box given to the patient Thank you for allowing pharmacy to be involved in the care of this patient. Please call [phone] or [phone] with any additional questions
--- NOTE | 2018-10-25 19:09 | Emergency Department Note ---
Entered by Maul Salazar acting as a scribe for History of Present Illness General Chief complaint: Stroke/CVA Symptoms Stated complaint: STROKE Time Seen by Provider: 10/24/18 15:36 Source: patient History of Present Illness Onset (ago): hour(s) 9 Location: eyes Pain Consistency: + constant Maximum Pain Intensity: 2 Quality: + other (double vision) Associated symptoms: + denies other symptoms (difficulty with speech, numbness, or tingling) and + headaches The patient is a 68 year old male who presents to the Emergency Room with complaints of constant double vision that started around 0700 this morning. The patient rates his discomfort a 2/10 in severity. He states since his symptoms were not improving, he called his doctor. He recommended the patient call an complex case manager. The patient went to see Dr. Cedeño's office today, saw Dr. Jacques and was told it was not his eyes but it may be a stroke so he recommended he come to the ED. He notes his blood pressure was also high at the office. The patient states when he went to bed last night he felt fine and had normal vision. He states head position does not alter his double vision, near vs. far does not make a difference, and his double vision is in a diagonal field. He reports a minor headaches intermittently that he thinks is related to dehydration. No current headache. He also complains of left chest discomfort. He denies any numbness, tingling, or difficulty with speech. The patient reports he has no history of eye problems. The patient is a former smoker. No pain with movement of his eyes. No recent trauma to the head or face. No recent eye infection including conjunctivitis. No history of glaucoma. Patient does wear glasses. Patient denies trouble breathing, nausea or vomiting. Denies any difficulty moving his extremities. States he does feel slightly off balance with walking but he feels this is due to the visual distortion. Home Medications Home Medications Medication Instructions Recorded Confirmed Type ranitidine HCl 150 mg PO HS 10/24/18 10/24/18 History aspirin 81 mg PO QAM 30 Days #30 tab 10/25/18 Rx atorvastatin 40 mg PO QAM 30 Days #30 tab 10/25/18 Rx lisinopril 20 mg PO DAILY #30 tab 10/25/18 Rx Allergies Allergy/AdvReac Type Severity Reaction Status Date / Time strawberry AdvReac Vomiting Verified 10/24/18 22:50 Past Med/Surg History Medical History No significant medical problems Social History Preferred Language: [place] Communication Ability: Effective Beliefs That Will Affect Care: None marital status: Current Living Situation: Spouse Feels Safe at Home: Yes Smoking Status: Former smoker Hx Alcohol Use: Yes Alcohol type: beer Hx Substance Use: No Review of Systems See HPI for pertinent positives & negatives. and A total of 10 systems reviewed and were otherwise negative Physical Exam Vital Signs Vital Signs - 24 hr 10/24/18 15:31 10/24/18 15:44 10/24/18 15:51 Temperature 99.0 F Temperature Source Oral Sepsis Recent Fever Within 48 Hours No Sepsis Action Taken by Nursing No Action Required Pulse Rate 115 H 117 H 109 H Pulse Rate [Apical] Pulse Rate from SpO2 Sensor Pulse Rhythm Regular Regular Pulse Rhythm [Apical] Pulse Strength Normal Pulse Strength [Apical] Respiratory Rate 20 17 16 Respiratory Effort / Characteristics Non-Labored Spontaneous Respiratory Depth Normal Respiratory Pattern Regular Blood Pressure 199/117 H 213/125 H Blood Pressure [Right Arm] Blood Pressure Mean 144 154 Blood Pressure Mean [Right Arm] Blood Pressure Position Lying Blood Pressure Position [Right Arm] Pulse Oximetry 96 95 95 Oxygen Delivery Method Room Air Room Air Room Air 10/24/18 16:17 10/24/18 16:30 10/24/18 16:45 Temperature Temperature Source Sepsis Recent Fever Within 48 Hours Sepsis Action Taken by Nursing Pulse Rate 107 H 96 H 91 H Pulse Rate [Apical] Pulse Rate from SpO2 Sensor 108 H 96 H 91 H Pulse Rhythm Pulse Rhythm [Apical] Pulse Strength Pulse Strength [Apical] Respiratory Rate 6 L 20 12 Respiratory Effort / Characteristics Respiratory Depth Respiratory Pattern Blood Pressure 195/112 H 171/104 H 189/108 H Blood Pressure [Right Arm] Blood Pressure Mean 139 126 135 Blood Pressure Mean [Right Arm] Blood Pressure Position Blood Pressure Position [Right Arm] Pulse Oximetry 93 94 96 Oxygen Delivery Method Room Air Room Air Room Air 10/24/18 17:00 10/24/18 17:58 10/24/18 17:59 Temperature Temperature Source Sepsis Recent Fever Within 48 Hours Sepsis Action Taken by Nursing Pulse Rate 99 H Pulse Rate [Apical] 96 H Pulse Rate from SpO2 Sensor 96 H 95 H Pulse Rhythm Pulse Rhythm [Apical] Regular Pulse Strength Pulse Strength [Apical] Normal Respiratory Rate 18 17 18 Respiratory Effort / Characteristics Non-Labored Respiratory Depth Normal Respiratory Pattern Blood Pressure 172/99 H 165/97 H Blood Pressure [Right Arm] 162/100 H Blood Pressure Mean 123 119 Blood Pressure Mean [Right Arm] 120 Blood Pressure Position Blood Pressure Position [Right Arm] Sitting Pulse Oximetry 94 94 96 Oxygen Delivery Method Room Air Room Air Room Air 10/24/18 18:00 10/24/18 18:30 10/24/18 19:05 Temperature Temperature Source Sepsis Recent Fever Within 48 Hours Sepsis Action Taken by Nursing Pulse Rate 87 84 Pulse Rate [Apical] Pulse Rate from SpO2 Sensor 96 H 88 85 Pulse Rhythm Pulse Rhythm [Apical] Pulse Strength Pulse Strength [Apical] Respiratory Rate 18 17 13 Respiratory Effort / Characteristics Respiratory Depth Respiratory Pattern Blood Pressure 162/100 H 158/96 H 175/100 H Blood Pressure [Right Arm] Blood Pressure Mean 120 116 125 Blood Pressure Mean [Right Arm] Blood Pressure Position Blood Pressure Position [Right Arm] Pulse Oximetry 94 94 95 Oxygen Delivery Method Room Air Room Air GENERAL: alert, well appearing, well nourished, no distress, non-toxic EYE EXAM: normal conjunctiva, PERRL and EOM's grossly intact. No hyphema, no evidence of iritis. No ocular discharge. With EOMI testing slight lag in left eye, worse with horizontal movements. No periorbital edema, no evidence of trauma. OROPHARYNX: no exudate, no erythema, lips, buccal mucosa, and tongue normal and mucous membranes are moist NECK: supple, no nuchal rigidity, no adenopathy, non-tender LUNGS: Clear to auscultation. Normal chest wall mechanics, no w/r/r HEART: no murmurs, S1 normal and S2 normal ABDOMEN: abdomen soft, non-tender, normo-active bowel sounds, no masses, no rebound or guarding. BACK: Back is symmetrical on inspection and there is no deformity, no midline tenderness, no CVA tenderness. SKIN: no rashes and no bruising, no petechiae. UPPER EXTREMITIES: upper extremities are grossly normal. FROM, nml pulses b/l. LOWER EXTREMITIES: No pitting edema. FROM, nml pulses b/l. NEURO EXAM: Normal sensorium, cranial nerves II-XII grossly intact, normal speech, no gross weakness of arms, no gross weakness of legs. No drift. Finger to nose intact. Gross sensation intact. NIH stroke score is 0. Course 1539: The patient was evaluated in room C9. A complete history and physical exam was performed. 1645: Per nursing staff, the patient fell while getting orbit x-ray in order to be clear for MRI. He states he slipped trying to get out of the bed. Denies injury. Denies hitting his head. 1935: Discussed the patient's case and MRI results with on-call neurology, Dr. Hauser. 2030: I reviewed the patient's case with Dr. Eisenberg, [facility] Hospitalist. He agrees to evaluate the patient for further management. Consultations Consultation #1: I reviewed the patient's case with Dr. Eisenberg, [facility] Hospitalist. He agrees to evaluate the patient for further management. Time: 20:30 Administered Medications Discontinued Medications Aspirin (Aspirin Chew) 81 mg PO QAM [facility] Stop: 11/24/18 08:59 Last Admin: 10/25/18 08:18 Dose: 81 mg Documented by: [id number] Atorvastatin Calcium (Lipitor) 40 mg PO QAM [facility] Stop: 11/24/18 11:44 Last Admin: 10/25/18 11:54 Dose: 40 mg Documented by: [id number] Heparin Sodium (Porcine) (Heparin Sodium (Porcine)) 5,000 units SQ Q12 [facility] Stop: 11/23/18 22:16 Last Admin: 10/25/18 08:19 Dose: 5,000 units Documented by: [id number] Cosigned by: [id number] Admin: 10/25/18 00:07 Dose: 5,000 units Documented by: [id number] Cosigned by: [id number] Sodium Chloride (Nss) 500 mls @ 999 mls/hr IV .Q31M ONE Stop: 10/24/18 16:30 Last Infusion: 10/24/18 16:59 Dose: 0 mls/hr Documented by: [id number] Admin: 10/24/18 16:16 Dose: 999 mls/hr Documented by: [id number] Labetalol HCl (Normodyne) 10 mg IV NOW STA Stop: 10/24/18 16:01 Last Admin: 10/24/18 16:17 Dose: 10 mg Documented by: [id number] Cosigned by: [id number] Labetalol HCl (Normodyne) 10 mg IV NOW STA Stop: 10/24/18 16:55 Last Admin: 10/24/18 21:57 Dose: Not Given Documented by: [id number] Lisinopril (Zestril) 20 mg PO NOW STA Stop: 10/25/18 11:43 Last Admin: 10/25/18 11:54 Dose: 20 mg Documented by: [id number] Ranitidine HCl (Zantac) 150 mg PO HS [facility] Stop: 11/23/18 22:16 Last Admin: 10/25/18 00:07 Dose: 150 mg Documented by: [id number] Medical Decision Making Differential Diagnosis Etiologies such as tumor, stroke, infection, intracranial hemorrhage, trauma, as well as others were entertained. Medical Records Attestation: I reviewed the patient's medical records. Home Medications Current Medication List: was personally reviewed by me Laboratory Data Attestation: I reviewed the patient's lab results. Result diagrams: 10/25/18 06:06 10/25/18 06:06 Lab Results 10/24/18 10/24/18 10/24/18 Range/Units 15:40 15:53 15:53 WBC 6.09 (4.8-10.8) K/uL RBC 5.17 (4.7-6.1) M/uL Hgb 16.7 (14.0-18.0) g/dL Hct 46.9 (42-52) % MCV 90.7 (80-100) fL MCH 32.3 (25-34) pg MCHC 35.6 (32-36) g/dL RDW Std Deviation 42.5 (36.4-46.3) fL RDW Coeff of Lo 12.9 (11.5-14.5) % Plt Count 232 (130-400) K/uL MPV 10.4 (7.4-10.4) fL Immature Gran % (Auto) 0.2 % Neut % (Auto) 69.9 % Lymph % (Auto) 21.8 % Duval % (Auto) 6.1 % Eos % (Auto) 1.5 % Baso % (Auto) 0.5 % Immature Gran # (Auto) 0.01 (0.00-0.02) K/uL Neut # (Auto) 4.26 (1.4-6.5) K/uL Lymph # (Auto) 1.33 (1.2-3.4) K/uL Duval # (Auto) 0.37 (0.11-0.59) K/uL Eos # (Auto) 0.09 (0-0.5) K/uL Baso # (Auto) 0.03 (0-0.2) K/uL Sodium 143 (136-145) mmol/L Potassium 3.7 (3.5-5.1) mmol/L Chloride 107 (98-107) mmol/L Carbon Dioxide 28 (21-32) mmol/L Anion Gap 8.0 (3-11) BUN 12 (7-18) mg/dl Creatinine 0.94 (0.6-1.4) mg/dl Est Cr Clr Drug Dosing Not Reportable Est GFR ( Amer) 96.2 Est GFR (Non-Af Amer) 83.0 BUN/Creatinine Ratio 12.4 (10-20) Glucose 133 H (70-99) mg/dl POC Glucose 132 H (70-99) Estimat Average Glucose mg/dl Hemoglobin A1c (4.5-5.6) % Calcium 10.3 H (8.5-10.1) mg/dl Magnesium 2.0 (1.8-2.4) mg/dl Total Bilirubin 0.7 (0.2-1) mg/dl AST 13 L (15-37) U/L ALT 26 (12-78) U/L Alkaline Phosphatase 82 (45-117) U/L Troponin I < 0.015 (0-0.045) ng/ml Total Protein 7.6 (6.4-8.2) gm/dl Albumin 4.3 (3.4-5.0) gm/dl Globulin 3.3 (2.5-4.0) gm/dl Albumin/Globulin Ratio 1.3 (0.9-2) TSH 2.250 (0.300-4.500) uIu/ml Lyme Disease IgG Ab (Negative) Lyme Disease IgM Ab (Negative) 10/24/18 10/24/18 Range/Units 15:53 15:53 WBC (4.8-10.8) K/uL RBC (4.7-6.1) M/uL Hgb (14.0-18.0) g/dL Hct (42-52) % MCV (80-100) fL MCH (25-34) pg MCHC (32-36) g/dL RDW Std Deviation (36.4-46.3) fL RDW Coeff of Lo (11.5-14.5) % Plt Count (130-400) K/uL MPV (7.4-10.4) fL Immature Gran % (Auto) % Neut % (Auto) % Lymph % (Auto) % Duval % (Auto) % Eos % (Auto) % Baso % (Auto) % Immature Gran # (Auto) (0.00-0.02) K/uL Neut # (Auto) (1.4-6.5) K/uL Lymph # (Auto) (1.2-3.4) K/uL Duval # (Auto) (0.11-0.59) K/uL Eos # (Auto) (0-0.5) K/uL Baso # (Auto) (0-0.2) K/uL Sodium (136-145) mmol/L Potassium (3.5-5.1) mmol/L Chloride (98-107) mmol/L Carbon Dioxide (21-32) mmol/L Anion Gap (3-11) BUN (7-18) mg/dl Creatinine (0.6-1.4) mg/dl Est Cr Clr Drug Dosing Est GFR ( Amer) Est GFR (Non-Af Amer) BUN/Creatinine Ratio (10-20) Glucose (70-99) mg/dl POC Glucose (70-99) Estimat Average Glucose 137 mg/dl Hemoglobin A1c 6.4 H (4.5-5.6) % Calcium (8.5-10.1) mg/dl Magnesium (1.8-2.4) mg/dl Total Bilirubin (0.2-1) mg/dl AST (15-37) U/L ALT (12-78) U/L Alkaline Phosphatase (45-117) U/L Troponin I (0-0.045) ng/ml Total Protein (6.4-8.2) gm/dl Albumin (3.4-5.0) gm/dl Globulin (2.5-4.0) gm/dl Albumin/Globulin Ratio (0.9-2) TSH (0.300-4.500) uIu/ml Lyme Disease IgG Ab Negative (Negative) Lyme Disease IgM Ab Negative (Negative) Imaging Data Radiologist's Impression: Radiology results as stated below per my review and the radiologist's interpretation: XR chest 1V portable CLINICAL HISTORY: 68 years-old Male presenting with hypertension. TECHNIQUE: Portable upright AP view of the chest was obtained. COMPARISON: . FINDINGS: Atherosclerosis of the aortic arch. Cardiac silhouette normal in size. Lungs and pleural spaces clear. Degenerative changes of the thoracic spine. Upper abdomen normal. IMPRESSION: 1. No acute cardiopulmonary disease. Electronically signed by: Heriberto Simmons M.D. 10/24/2018 4:08 PM. ORBIT RADIOGRAPHS 3 VIEWS HISTORY: pre-MRI screening. COMPARISON: None. FINDINGS: There are no radiopaque foreign bodies identified within the orbits. IMPRESSION: No radiopaque foreign bodies identified within the orbits. Electronically signed by: Davian Holder M.D. 10/24/2018 4:51 PM. MRA OF THE INTRACRANIAL CIRCULATION WITHOUT CONTRAST CLINICAL HISTORY: Diplopia. COMPARISON STUDY: None. TECHNIQUE: Utilizing a 1.5 Lexis magnet and 3-D [id number] technique, unenhanced MRA of the intracranial circulation was obtained. FINDINGS: Please note that the MRI of the brain will be reported separately. The bilateral M1, M2, A1 and A2 segments are patent. 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 The right A1 segment is diminutive and likely hypoplastic. No intracranial aneurysm is identified. No abrupt vessel cut off inside identified. There is moderate to severe stenosis of the P2 segment of the left posterior cerebral artery. IMPRESSION: 1. No intracranial aneurysm or abrupt vessel cut off. 2. 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 Electronically signed by: Davian Holder M.D. 10/24/2018 5:44 PM. MR brain wo con CLINICAL HISTORY: 68 years-old Male presenting with diplopia that began at 70 and today, concern for stroke. TECHNIQUE: Multisequence, multiplanar MR imaging of the brain was performed without the use of intravenous contrast. IV contrast: None. COMPARISON: None. FINDINGS: Localizer images: Unremarkable. Normal midline sagittal structures. Proportional ventricular and sulcal prominence, likely age-related parenchymal volume loss. No restricted diffusion or hemorrhage. Punctate focus of diffusion hyperintensity within the left cerebral peduncle is felt to be artifactual given the absence of associated T2/FLAIR hyperintensity in this region. Minimal periventricular and subcortical white matter T2/FLAIR hyperintensity, nonspecific but likely indicative of chronic small vessel ischemic change. No mass effect or midline shift. Mild prominence of CSF spaces along the optic nerves without other evidence to suggest intracranial hypertension. No extra-axial fluid collection. T2 skull base flow voids preserved. Bone marrow signal intensity within the calvarium within normal limits. Complete opacification of the right maxillary sinus. IMPRESSION: 1. No acute intracranial abnormality. Electronically signed by: Heriberto Simmons M.D. 10/24/2018 5:51 PM ECG Data Attestation: I personally reviewed and interpreted this ECG as follows: Indication: chest pain Rate (beats per minute): 113 Rhythm: sinus tachycardia Findings: + other (normal axis, normal intervals ); no acute ischemic change and no ectopy Blood Pressure Blood Pressure Findings: Elevated blood pressure Blood Pressure Disposition: further management by hospitalist MDM Narrative Patient here with concerning story for possible stroke after being evaluated by ophthalmology as an outpatient given new onset diplopia. Patient with risk factors for stroke including uncontrolled hypertension, diabetes, high cholesterol. No recent trauma or infection. No other focal neurologic deficits. MRI here ultimately negative, although vascular changes are noted consistent with his risk factors. Patient with persistent diplopia here. Given findings on extraocular muscle testing, I feel a cranial nerve palsy is most likely at this point in time. However given patient's risk factors for stroke, need for additional blood pressure management, case was discussed with hospitalist for additional evaluation and management. I did discuss the case with neurology who agreed with likely diagnosis and plan. Patient should likely be started on antiplatelet agent to help prevent cva/tia. No evidence of infection or other elect light abnormalities. Patient's blood pressure improved here with addition of antihypertensive agents. Discussed with patient all results at bedside. He and verbalized understanding. They were in agreement with plan for additional inpatient monitoring and treatment. No evidence of ACS or dissection. I feel patient's brief episode of chest pain more likely related to anxiety regarding new symptoms and situation, possible hypertensive urgency. No evidence of hypertensive emergency. Impression & Plan Diplopia, Hypertension Discharge Plan Visit Data *Final* Discharge Date/Time: 10/24/18 21:58 Chief Complaint: Stroke/CVA Symptoms Stated Complaint: STROKE ED Provider: Diana Kc Discharge Problem: Diplopia, Hypertension Patient Disposition: Admitted As Inpatient Condition: Good Discharge Instructions Interventions: ED Discharge Assessment Last Done: 10/24/18 21:58 Discharge Problem: Hypertension Qualifiers: Hypertension type: unspecified Qualified Code(s): I10 - Essential (primary) hypertension The scribe's documentation has been prepared under my direction and personally reviewed by me in its entirety. I confirm that the note above accurately reflects all work, treatment, procedures, and medical decision making performed by me.
--- NOTE | 2018-10-27 13:06 | Pharmacy Report ---
Pharmacist Post D/C Phone Note - Phone Note: Date of phone call: October 27, 2018. Individual with whom pharmacist spoke to: MITCH ELLIS The following questions were reviewed during the phone call with responses listed below each: Can you tell me the medications that you are currently taking as well as when and how you take each medication? -See Table Below When have you missed any doses of your medications? - NONE What side effects are you having from your medications, specifically, the new medications you were started on? - NONE What questions do you have about your medications? - NONE What problems are you having obtaining your medications? - NONE, THEY WERE ALL CHEAP When is your next appointment with your primary care doctor? - Will be determined this afternoon, he is waiting to hear back from PCP Additional comments: - Mr. Ellis stated that he doubled his lisinopril dose (per physicians recs) given that his BP was running high over the past few days >160/90. I recommended he update his PCP on this change in dose. Given his ASCVD score and stage II HTN: an additional agent may need to be added on. I informed him of this. As per the Pharmacist Discharge Counseling for Stroke Patients Protocol, this phone call has been completed within 72 hours of discharge. Thank you for allowing us to be involved in the care of this patient. - Home Medications: Home Medications Medication Instructions Recorded Confirmed ranitidine HCl 150 mg PO HS 10/24/18 10/24/18 New Rx's Medication Instructions Recorded aspirin 81 mg PO QAM 30 Days #30 tab 10/25/18 atorvastatin 40 mg PO QAM 30 Days #30 tab 10/25/18 lisinopril 20 mg PO DAILY #30 tab 10/25/18
== END 2018-10-25 16:13 | disposition home or self-care (01) | DRG 66 ==
LOC: ED 15:25 → SUATTDRO 20:54 → 2S 20:54